=== PATIENT | male | born 1995 | race Caucasian/White ===

== ENCOUNTER 2017-02-28 22:02 | Emergency (ER) | payer BC, OTHER ==
[2017-02-28 22:07] VITALS: BP 144/65; BMI 23.6
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
== END 2017-02-28 23:45 | disposition home or self-care (01) ==
LOC: ER 22:11
PROC: 0WQ20ZZ Repair Face, Open Approach (ICD-10-PCS; principal; 2017-02-28)
DX: S02.2XXA Fracture of nasal bones, initial encounter for closed fracture (principal); S01.91XA Laceration without foreign body of unspecified part of head, initial encounter; M24.50 Contracture, unspecified joint; X58.XXXA Exposure to other specified factors, initial encounter; Y92.69 Other specified industrial and construction area as the place of occurrence of the external cause
CPT/HCPCS: 12011; 70486; 99282; 99283

== ENCOUNTER 2017-08-12 11:33 | Emergency (ER) | payer BC, OTHER ==
[2017-08-12 11:51] VITALS: BMI 23.3
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
[2017-08-12 12:44] VITALS: BP 127/67
== END 2017-08-12 12:56 | disposition home or self-care (01) ==
LOC: ER 11:50
PROC: 0HCFXZZ Extirpation of Matter from Right Hand Skin, External Approach (ICD-10-PCS; principal; 2017-08-12)
DX: S69.91XA Unspecified injury of right wrist, hand and finger(s), initial encounter (principal); S60.551A Superficial foreign body of right hand, initial encounter; W29.4XXA Contact with nail gun, initial encounter; Y92.69 Other specified industrial and construction area as the place of occurrence of the external cause
CPT/HCPCS: 10120; 73130; 80305; 99283